=== PATIENT | female | born 1970 ===

== ENCOUNTER → 2017-07-21 | Outpatient (CLI) | payer MEDICARE, OTHER ==
[~2017-07-21] MED LIST: ARIPIPRAZOLE 5 MG; BUPR100; BUPR100ER; CLON.5; CLON1; HYDPAM50; LITH300C; LITH300ER; LITH450ER; QUET100; QUET300; RISP1; RXHYDACE PO; SULI200; TEMA15; TRAZ50; VENL75ER; ZIPR40; [UNRECOGNIZED DRUG - OTHER]
[2017-07-21 19:01] LABS: U Amphetamine Screen DETECTED; U Barbituate Screen Not Detected; U Benzodiazapine Screen Not Detected; U Buprenorphine Screen Not Detected; U Cannabinoids Screen Not Detected; U Cocaine Screen Not Detected; U Methadone Screen Not Detected; U Methamphetamine Screen Not Detected; U Opiates Screen Not Detected; U Oxycodone Screen Not Detected; U Phencyclidine Screen Not Detected; U Propoxyphene Screen Not Detected
== END ==
LOC: LAB SHORT 16:40 → LAB 16:40
PROVIDERS: Nurse Practitioner Family
DX: Z79.899 Other long term (current) drug therapy (principal)